=== PATIENT | female | born 1965 | race Caucasian/White ===

== ENCOUNTER → 2017-05-01 | Outpatient (CLI) | payer OTHER ==
[~2017-05-01] MED LIST: ANAPROX DS550 MG PO; ANTIVERT25 MG PO; CIPROFLOXACIN500 MG PO; CITALOPRAM10 MG PO; HYDROCODONE BIT1 T11 PO; MOTRIN800 MG PO; Motrin,Rufen800 MG PO; NORCO 5-325 TA1 EACH PO; Orphenadrine C100 MG PO; PREDNISONE20 MG PO; VIBRAMYCIN100 MG PO; XANAX2 MG PO; ZOFRAN ODT4 MG SL
[2017-05-01 07:25] LABS: HEMATOCRIT 37.8 % (37.0-47.0); HEMOGLOBIN 12.6 g/dl (12.0-16.0); MEAN CELL VOLUME 99.5 fl (81.0-99.0); MEAN CORPUSCULAR HGB 33.2 pg (27.0-31.0); MEAN CORPUSCULAR HGB CONC 33.3 g/dl (33.0-37.0); MEAN PLATELET VOLUME 9.3 fl (9.6-12.3); RED BLOOD COUNT 3.8 10*6/uL (4.10-5.10); RED CELL DISTRI WIDTH 12.8 % (0-14.5); WHITE BLOOD COUNT 8.5 10*3/uL (4.8-10.8)
[2017-05-01 07:58] LABS: ALBUMIN 3.5 gm/dl (3.1-4.5); BUN 19 mg/dl (7-24); CARBON DIOXIDE 30 mmol/L (21-32); CHLORIDE 107 mmol/L (98-107); CHOLESTEROL 196 mg/dL (<200); EST GLOM FILT AFRICAN AMERICAN > 60 ml/min; GLUCOSE 88 mg/dL (65-99); POTASSIUM 4.1 mmol/L (3.5-5.1); SGOT/AST 13 IU/L (3-35); SGPT/ALT 16 U/L (12-78); SODIUM 143 mmol/L (136-145); TRIGLYCERIDES 114 mg/dl (<150); VLDL CHOLESTEROL 23 mg/dL (6-40)
[2017-05-01 08:07] LABS: ALKALINE PHOSPHATASE 57 U/L (45-117); BILIRUBIN, TOTAL 0.2 mg/dl (0.2-1.0); HDL CHOLESTEROL 44 mg/dl (40-60); LDL CHOLESTEROL 129 mg/dL (9-159); TOTAL PROTEIN 6.7 gm/dL (6.4-8.2)
== END | disposition home or self-care (01) ==
LOC: LAB 07:10
PROVIDERS: Family Medicine
DX: I10 Essential (primary) hypertension (principal); E03.9 Hypothyroidism, unspecified; E11.9 Type 2 diabetes mellitus without complications; E78.00 Pure hypercholesterolemia, unspecified

== ENCOUNTER → 2017-05-16 | Outpatient (CLI) | payer OTHER | END | disposition home or self-care (01) | LOC: US 10:30 | DX: F10.20 Alcohol dependence, uncomplicated (principal) ==

== ENCOUNTER → 2017-05-28 | Outpatient (CLI) | payer OTHER ==
[2017-05-29 08:12] LABS: RHEUMATOID ARTHRITIS FACTOR <10.0 IU/mL (0.0-13.9)
[2017-05-29 13:05] LABS: LYME AB/TOTAL IMMUNOGLOBULINS <0.91 ISR (0.00-0.90)
== END | disposition home or self-care (01) ==
LOC: LAB 10:57
PROVIDERS: Family Medicine
DX: M79.1 Myalgia (principal); M25.50 Pain in unspecified joint

== ENCOUNTER → 2017-06-04 | Outpatient (CLI) | payer OTHER | END | disposition home or self-care (01) | LOC: LAB 14:40 | DX: R76.0 Raised antibody titer (principal) ==

== ENCOUNTER → 2017-06-19 | Outpatient (CLI) | payer OTHER | END | disposition home or self-care (01) | LOC: MAMMO 12:30 | DX: Z12.31 Encounter for screening mammogram for malignant neoplasm of breast (principal) ==

== ENCOUNTER → 2017-07-06 | Day surgery (SDC) | payer OTHER ==
[~2017-07-06] VITALS: Ht 157.4 cm; Wt 63.5 kg
[~2017-07-06] MED LIST changes: +CARAFATE1 G1 PO; +CYMBALTA30 MG PO; +MULTIPLE VITAM1 EAC1 PO; +OMEPRAZOLE40 MG PO; +REMERON15 M2 PO; +SYNTHROID,LEV125 MCG PO
--- NOTE | ~2017-07-06 | O ---
[place], [place] OPERATIVE NOTE NAME: DORITA MCGREGOR UNIT #: [id number] ROOM: DOCTOR: ROB WARREN MD BIRTHDATE: [birth year] DOS: 07/06/2017 INDICATIONS: This is a 52-year-old patient who has presented with guaiac positivity, undergoing investigation. She has dyspepsia as well. PAST MEDICAL HISTORY: Old history of alcoholism and recently stopped nicotine consumption; also gastritis, has been started on omeprazole 40 mg daily; hypothyroidism. ALLERGIES: PENICILLIN AND LEXAPRO. FAMILY HISTORY: Noncontributory. MEDICATIONS: She is on Carafate, Remeron, and Cymbalta for anxiety. PAST SURGICAL HISTORY: Basal cell CA in face, which has been resected. PROCEDURE: Today's procedure part of investigation is panendoscopy and colonoscopy. PREMEDICATION: Versed and Diprivan. SCOPE: Olympus forward-viewing gastroscope Q10 video. REPORT: After putting the patient in the left lateral position and after application of lubricant to the scope, the scope was introduced. Thereafter, under direct visualization, I advanced through the length of the esophagus without difficulty. Gastric pouch was entered. Gastritis, gastric erosions noticed. Duodenal bulb, second and third part within normal limits. The patient extubated, tolerated procedure well. IMPRESSIONS: A 2 cm hiatal hernia, gastric erosions, status post biopsy. PLAN AND DISCUSSION: We are going to continue on omeprazole 40 mg that she has been taking already. Once her supply of Carafate completes, we will discontinue Carafate. On the other hand, we are going to proceed with colonoscopy. [place], [place] OPERATIVE NOTE NAME: DORITA MCGREGOR UNIT #: [id number] ROOM: DOCTOR: ROB WARREN MD BIRTHDATE: [birth year] ROB WARREN MD CM:OPRECORD:OPERATIVE NOTE [id number] ROB WARREN MD 07/06/17 1316 interface
--- NOTE | ~2017-07-06 | O ---
[place], [place] OPERATIVE NOTE NAME: DORITA MCGREGOR UNIT #: [id number] ROOM: DOCTOR: ROB WARREN MD BIRTHDATE: [birth year] DOS: 07/06/2017 INDICATIONS: The patient has presented with guaiac positivity, undergoing investigation. PROCEDURE: Colonoscopy. PREMEDICATION: Versed and Diprivan. SCOPE: Olympus forward-viewing colonoscope 10L video. REPORT: After putting the patient in the left lateral position and after application of lubricant to rectal pouch and digital examination, scope was introduced. Thereafter, under direct visualization, I advanced through the length of colon without difficulty. Base of the cecum explored, appendiceal orifice identified, and ileocecal valve was defined. Scope was withdrawn back to the rectal pouch and approximately 6 cm away from rectal sphincter, an infiltrated large polypoid lesion, irregular lobulated in character and deeply invaded. This was as much as possible with snare polypectomy effaced and 3 other polypoid lesions from the same area with snare were polypectomized and the site of the large polyp which was broad-based and deeply infiltrated was tattooed with 2 mL of ink and the patient extubated, tolerated procedure well. IMPRESSION: Multiple rectal pouch polyp, particularly 1 large infiltrated status post polypectomy with residual deep penetration in the tissue, which has been noticed. However, the site has been probe coagulated as well and ink tattooed. PLAN AND DISCUSSION: We are awaiting polypectomy report. If any dysplasia is noticed in this area, then she would require surgical approach for removal of this lesion. Workup in progress. Thank you very much indeed for your very kind referral. [place], [place] OPERATIVE NOTE NAME: DORITA MCGREGOR UNIT #: [id number] ROOM: DOCTOR: ROB WARREN MD BIRTHDATE: [birth year] ROB WARREN MD CM:OPRECORD:OPERATIVE NOTE [id number] GIANNI WARREN MD 07/06/17 1325 interface
[2017-07-06 09:00] VITALS: BP 112/73
[2017-07-06 10:55] VITALS: BP 108/73
[2017-07-06 11:10] VITALS: BP 123/79
[2017-07-06 11:25] VITALS: BP 114/70
== END | disposition home or self-care (01) ==
LOC: SDC 07-02 12:30
DX: D12.5 Benign neoplasm of sigmoid colon (principal); D12.8 Benign neoplasm of rectum; K29.50 Unspecified chronic gastritis without bleeding; K44.9 Diaphragmatic hernia without obstruction or gangrene; I34.1 Nonrheumatic mitral (valve) prolapse; E03.9 Hypothyroidism, unspecified; E11.9 Type 2 diabetes mellitus without complications; Z80.0 Family history of malignant neoplasm of digestive organs

== ENCOUNTER → 2017-09-04 | Outpatient (CLI) | payer OTHER ==
[2017-09-04 07:47] LABS: ALBUMIN 3.6 gm/dl (3.1-4.5); ALKALINE PHOSPHATASE 80 U/L (45-117); BUN 11 mg/dl (7-24); CHLORIDE 106 mmol/L (98-107); CHOLESTEROL 180 mg/dL (<200); CPK 67 U/L (26-192); FREE T4 0.97 ng/dl (0.76-1.46); HDL CHOLESTEROL 48 mg/dl (40-60); SGOT/AST 14 IU/L (3-35); SGPT/ALT 19 U/L (12-78); SODIUM 142 mmol/L (136-145); TOTAL PROTEIN 6.8 gm/dL (6.4-8.2)
[2017-09-04 07:52] LABS: LDL CHOLESTEROL 114 mg/dL (9-159); THYROID STIM HORMONE (HS) 0.389 uIU/ml (0.358-4.75); TRIGLYCERIDES 88 mg/dl (<150); VLDL CHOLESTEROL 18 mg/dL (6-40)
== END | disposition home or self-care (01) ==
LOC: LAB 07:12
PROVIDERS: Family Medicine
DX: E03.9 Hypothyroidism, unspecified (principal); E11.9 Type 2 diabetes mellitus without complications; E55.9 Vitamin D deficiency, unspecified; M19.90 Unspecified osteoarthritis, unspecified site

== ENCOUNTER → 2017-12-05 | Outpatient (CLI) | payer OTHER | END | disposition home or self-care (01) | LOC: RAD 17:03 → LAB 17:03 | DX: N20.0 Calculus of kidney (principal); I25.10 Atherosclerotic heart disease of native coronary artery without angina pectoris; R11.0 Nausea ==

== ENCOUNTER → 2018-01-02 | Day surgery (SDC) | payer OTHER ==
[~2018-01-02] VITALS: Ht 160 cm; Wt 65.8 kg
[~2018-01-02] MED LIST changes: +ACTOS30 M1 PO
--- NOTE | ~2018-01-02 | O ---
[place], [place] OPERATIVE NOTE NAME: DORITA MCGREGOR UNIT #: [id number] ROOM: DOCTOR: ROB WARREN MD BIRTHDATE: [birth year] DOS: 01/02/2018 GASTROENDOSCOPIC REPORT INDICATIONS: The patient is 52 years old with a history of rectal polyp with dysplasia and infiltration, status post previous tattoo marking. ALLERGIES: PENICILLIN AND LEXAPRO. PAST MEDICAL HISTORY: Hypothyroidism, anxiety, and peptic ulcer disease. SOCIAL HISTORY: Smoker, nonalcohol consumer, stopped alcohol. FAMILY HISTORY: Noncontributory. PROCEDURE: Today's procedure part of investigation is colonoscopy and polypectomies. PREMEDICATION: Versed and Diprivan. SCOPE: Olympus folding colonoscope 10L video. REPORT: After putting the patient in left lateral position and application of lubricant to rectal pouch and digital examination, the scope was introduced. Thereafter, under direct visualization, advanced through the length of colon without difficulty. Rectal pouch particularly was scant and sessile polypoid lesion in rectal pouch. Next to the previous tattoo marking with piecemeal polypectomy was removed. This is a small, scope was negotiated to base of cecum. Again, a very small sessile polypoid lesion that was starting to grow was identified. This was with piecemeal polypectomy removed. Air was suctioned out. Scope withdrawn back to the rectal pouch. The tattoo marking site of the previous polypectomy identified. There is no infiltration in the site. Air was suctioned out. The patient was extubated and tolerated the procedure well. IMPRESSION: Cecal polyps, status post polypectomy, rectal polyp, status post piecemeal polypectomy. PLAN: High fiber food diet. ACTIVITY: Ad jeremias. FOLLOWUP: As outpatient and routinely with you in office and p.r.n. visit with us in [facility]. This patient has potential for ____ polyps and requires future closer observation, perhaps in 3 years another colonoscopy. The patient advised to abstain from smoking and correction of dietary habits. I thank you very much indeed for your kind referral. [place], [place] OPERATIVE NOTE NAME: DORITA MCGREGOR UNIT #: [id number] ROOM: DOCTOR: ROB WARREN MD BIRTHDATE: [birth year] ROB WARREN MD CM:MIKEORD:OPERATIVE NOTE [id number] ROB WARREN MD 01/02/18 1027 interface
[2018-01-02 07:15] VITALS: BP 119/75
[2018-01-02 09:08] VITALS: BP 108/72
[2018-01-02 09:23] VITALS: BP 112/68
[2018-01-02 09:38] VITALS: BP 111/72
== END | disposition home or self-care (01) ==
LOC: SDC 12-31 08:00
DX: Z09 Encounter for follow-up examination after completed treatment for conditions other than malignant neoplasm (principal); Z86.010 Personal history of colon polyps; D12.0 Benign neoplasm of cecum; K63.5 Polyp of colon; E03.9 Hypothyroidism, unspecified; F41.8 Other specified anxiety disorders; K27.9 Peptic ulcer, site unspecified, unspecified as acute or chronic, without hemorrhage or perforation; F17.210 Nicotine dependence, cigarettes, uncomplicated; Z88.0 Allergy status to penicillin; Z88.8 Allergy status to other drugs, medicaments and biological substances; Z79.899 Other long term (current) drug therapy; Z87.19 Personal history of other diseases of the digestive system

== ENCOUNTER → 2018-04-01 | Outpatient (CLI) | payer OTHER ==
[2018-04-01 08:42] LABS: HEMATOCRIT 46.8 % (37.0-47.0); MEAN CELL VOLUME 99.2 fl (81.0-99.0); MEAN CORPUSCULAR HGB 31.8 pg (27.0-31.0); MEAN CORPUSCULAR HGB CONC 32.1 g/dl (33.0-37.0); MEAN PLATELET VOLUME 9.5 fl (9.6-12.3); RED BLOOD COUNT 4.72 10*6/uL (4.10-5.10); RED CELL DISTRI WIDTH 13.2 % (0-14.5); WHITE BLOOD COUNT 8.4 10*3/uL (4.8-10.8)
[2018-04-01 08:44] LABS: ALBUMIN 3.9 gm/dl (3.1-4.5); ALKALINE PHOSPHATASE 82 U/L (45-117); BUN 13 mg/dl (7-24); CHLORIDE 105 mmol/L (98-107); CHOLESTEROL 213 mg/dL (<200); CREATININE 0.89 mg/dL (0.55-1.02); FREE T4 0.95 ng/dl (0.76-1.46); HDL CHOLESTEROL 44 mg/dl (40-60); LDL CHOLESTEROL 137 mg/dL (9-159); POTASSIUM 3.7 mmol/L (3.5-5.1); SGOT/AST 22 IU/L (3-35); SGPT/ALT 29 U/L (12-78); SODIUM 143 mmol/L (136-145); TOTAL PROTEIN 7.8 gm/dL (6.4-8.2); TRIGLYCERIDES 161 mg/dl (<150); VLDL CHOLESTEROL 32 mg/dL (6-40)
[2018-04-02 06:11] LABS: FREE T3 010389 2.5 pg/mL (2.0-4.4)
[2018-04-02 08:09] LABS: RHEUMATOID ARTHRITIS FACTOR <10.0 IU/mL (0.0-13.9)
[2018-04-03 00:07] LABS: TESTOSTERONE FREE, (DIRECT) 3.7 pg/mL (0.0-4.2)
[2018-04-05 17:06] LABS: HLA-B27 ANTIGEN Negative (.)
== END | disposition home or self-care (01) ==
LOC: LAB 07:45
PROVIDERS: Family Medicine
DX: E55.9 Vitamin D deficiency, unspecified (principal); R53.83 Other fatigue; M79.1 Myalgia; M25.50 Pain in unspecified joint; R20.0 Anesthesia of skin; M54.6 Pain in thoracic spine; E03.9 Hypothyroidism, unspecified; E11.9 Type 2 diabetes mellitus without complications

== ENCOUNTER → 2018-10-14 | Outpatient (CLI) | payer OTHER ==
[2018-10-14 10:55] LABS: HEMATOCRIT 41.2 % (37.0-47.0); HEMOGLOBIN 13.4 g/dl (12.0-16.0); MEAN CELL VOLUME 96.9 fl (81.0-99.0); MEAN CORPUSCULAR HGB 31.5 pg (27.0-31.0); MEAN CORPUSCULAR HGB CONC 32.5 g/dl (33.0-37.0); MEAN PLATELET VOLUME 9.3 fl (9.6-12.3); RED BLOOD COUNT 4.25 10*6/uL (4.10-5.10); RED CELL DISTRI WIDTH 13.2 % (0-14.5); WHITE BLOOD COUNT 7.6 10*3/uL (4.8-10.8)
[2018-10-14 11:11] LABS: ALBUMIN 3.6 gm/dl (3.1-4.5); ALKALINE PHOSPHATASE 80 U/L (45-117); BUN 15 mg/dl (7-24); CHLORIDE 108 mmol/L (98-107); CHOLESTEROL 217 mg/dL (<200); CREATININE 0.83 mg/dL (0.55-1.02); FREE T4 0.84 ng/dl (0.76-1.46); HDL CHOLESTEROL 38 mg/dl (40-60); LDL CHOLESTEROL 135 mg/dL (9-159); SGOT/AST 15 IU/L (3-35); SGPT/ALT 28 U/L (12-78); SODIUM 142 mmol/L (136-145); TOTAL PROTEIN 7.4 gm/dL (6.4-8.2); TRIGLYCERIDES 221 mg/dl (<150); VLDL CHOLESTEROL 44 mg/dL (6-40)
== END | disposition home or self-care (01) ==
LOC: LAB 10:04 → US 11:00
PROVIDERS: Family Medicine
DX: E03.9 Hypothyroidism, unspecified (principal); E55.9 Vitamin D deficiency, unspecified; E78.00 Pure hypercholesterolemia, unspecified; R10.11 Right upper quadrant pain

== ENCOUNTER → 2018-10-31 | Outpatient (CLI) | payer OTHER | END | disposition home or self-care (01) | LOC: NM 01:10 | DX: R10.11 Right upper quadrant pain (principal); R14.0 Abdominal distension (gaseous); K30 Functional dyspepsia ==

== ENCOUNTER → 2020-09-20 | Outpatient (CLI) | payer SELFPAY | END | disposition home or self-care (01) | LOC: COVID19 15:14 | PROVIDERS: ATTEND Family Medicine | DX: Z20.828 Contact with and (suspected) exposure to other viral communicable diseases (principal) ==

== ENCOUNTER 2024-01-11 11:35 | Emergency (ER) | payer BC ==
[~2024-01-11] VITALS: Ht 157.4 cm; Wt 52.2 kg
[2024-01-11 11:51] VITALS: BP 153/85
== END 2024-01-11 12:45 | disposition home or self-care (01) ==
LOC: ED 11:35
DX: S01.81XA Laceration without foreign body of other part of head, initial encounter (principal); Z88.0 Allergy status to penicillin; Z91.040 Latex allergy status; Z88.8 Allergy status to other drugs, medicaments and biological substances; Z98.890 Other specified postprocedural states; W01.198A Fall on same level from slipping, tripping and stumbling with subsequent striking against other object, initial encounter; Y93.89 Activity, other specified; Y92.89 Other specified places as the place of occurrence of the external cause; Y99.8 Other external cause status